=== PATIENT | female | born 1995 ===

== ENCOUNTER 2017-12-02 03:58 | Emergency (ER) | payer SELFPAY ==
--- NOTE | 2017-12-02 04:26 | ED PDOC ---
HPI: Psych/Substance Abuse Time Seen by Provider: 12/02/17 04:19 Chief Complaint (Nursing): Alcohol Ingestion Chief Complaint (Provider): Alcohol Intoxication ED Caveat: Intoxicated History Per: Patient History/Exam Limitations: intoxication Onset/Duration Of Symptoms: Unknown Current Symptoms Are (Timing): Still Present Additional History Per: EMS Additional Complaint(s): Alexia is a 22 y/o female who was brought to the ED via EMS for public intoxication. Patient was found crying in the street. Additional history cannot be obtained due to intoxication. PMD: None Provided Past Medical History Reviewed: Historical Data, Nursing Documentation, Vital Signs Vital Signs: Last Vital Signs Temp 98.4 F 12/02/17 04:08 Pulse 101 H 12/02/17 04:08 Resp 16 12/02/17 04:08 BP 104/68 12/02/17 04:08 Pulse Ox 98 12/02/17 04:08 - Family History Family History: States: Unknown Family Hx - Allergies Allergies/Adverse Reactions: Allergies Allergy/AdvReac Type Severity Reaction Status Date / Time No Known Allergies Allergy Verified 12/02/17 04:14 Review of Systems Review Of Systems: ROS cannot be obtained secondary to pt's inabilty to answer questions. Physical Exam - Reviewed Nursing Documentation Reviewed: Yes Vital Signs Reviewed: Yes - Physical Exam Appears: Positive for: Well, Non-toxic, No Acute Distress Cardiovascular/Chest: Positive for: Regular Rate, Rhythm. Negative for: Murmur Respiratory: Positive for: Normal Breath Sounds. Negative for: Respiratory Distress Neurologic/Psych: Positive for: Other (slurred speech). Negative for: Alert, Oriented - ECG O2 Sat by Pulse Oximetry: 98 (RA) Pulse Ox Interpretation: Normal Medical Decision Making Medical Decision Making: Time: 4:19 Initial Impression: 22 y/o intoxicated female Initial Plan: --Alcohol Serum --Accucheck Time: 7:00 --Patient signed out to Dr. Carrera pending sobriety. Scribe Attestation: Documented by Akbar Combs, acting as a scribe for Keith Otto MD Provider Scribe Attestation: All medical record entries made by the Scribe were at my direction and personally dictated by me. I have reviewed the chart and agree that the record accurately reflects my personal performance of the history, physical exam, medical decision making, and the department course for this patient. I have also personally directed, reviewed, and agree with the discharge instructions and disposition. Disposition - Clinical Impression Clinical Impression: Alcohol intoxication - Patient ED Disposition Is Patient to be Admitted: Transfer of Care - Disposition Referrals: [facility] [Outside] Disposition: Transfer of Care Disposition Time: 07:00 Condition: GOOD Instructions: Alcohol Use - When Is Drinking a Problem? Print Language: GEORGIAN Patient Signed Over To: Marc Carrera
--- NOTE | 2017-12-02 07:44 | ED PDOC ---
- ECG O2 Sat by Pulse Oximetry: 100 - Progress ED Course And Treament: Assumed care from Dr Otto. Pending clinical sobriety. Re-evaluation Time: 08:37 Condition: Re-examined, Improved Medical Decision Making Medical Decision Making: Patient is alert and awake. Ambulatory with steady gait. Stable for discharge. Disposition Doctor Will See Patient In The: Office Counseled Patient/Family Regarding: Studies Performed, Diagnosis, Need For Followup - Clinical Impression Clinical Impression: Alcohol intoxication - POA Present On Arrival: None - Disposition Referrals: [facility] [Outside] Disposition: Routine/Home Disposition Time: 08:39 Condition: GOOD Instructions: Alcohol Use - When Is Drinking a Problem? Print Language: TURKISH
[2017-12-02 08:54] VITALS: TEMP 98.3
[2017-12-02 08:57] VITALS: BP 105/67; PULSE 94; RESP 18
[2017-12-06 01:47] VITALS: O2SAT 98
== END 2017-12-02 09:19 | disposition home or self-care (01) ==
LOC: H.ER 03:58
DX: F10.129 Alcohol abuse with intoxication, unspecified (principal)
CPT/HCPCS: 82948; 99283; G0480